=== PATIENT | male | born 1955 | race Caucasian/White ===

== ENCOUNTER 2023-02-05 09:17 | Outpatient (CLI) | payer MEDICARE, OTHER, SELFPAY ==
--- NOTE | ~2023-02-05 | MR_ITS ---
EXAMINATION: MR pelvis wo/w con DATE: 02/05/2023 10:18 INDICATION: Malignant neoplasm of prostate. TECHNIQUE: Magnetic resonance imaging (MRI) of the pelvis was performed without and with 17 mL MultiH ance intravenous contrast. COMPARISON: None. FINDINGS: There are no dilated loops of bowel. There is diverticulosis of the colon without evidence of diverti culitis. There is an umbilical hernia containing fat. The prostate is mildly enlarged. There is space r gel between the rectum and prostate. There are bilateral inguinal hernias containing fat. There are no pathologically enlarged lymph nodes. There is no free intraperitoneal fluid. IMPRESSION: 1. Mildly enlarged prostate. No evidence of metastatic disease. Reviewed, dictated and finalized at location A.
== END 2023-02-05 09:18 | disposition home or self-care (01) ==
PROVIDERS: PCP Internal Medicine; Visit Provider Radiology Radiation Oncology
DX: C61 Malignant neoplasm of prostate (principal)
CPT/HCPCS: 36415; 72197; 84153; A9577

== ENCOUNTER 2023-02-05 10:31 | Outpatient (CLI) | payer MEDICARE, OTHER, SELFPAY ==
[2023-02-05 11:55] LABS: Prostate Specific Antigen 13.7 ng/mL (< OR = 4.0)
== END 2023-02-05 10:32 | disposition home or self-care (01) ==
PROVIDERS: PCP Radiology Radiation Oncology; Visit Provider Radiology Radiation Oncology
DX: C61 Malignant neoplasm of prostate (principal)
CPT/HCPCS: 36415; 84153